=== PATIENT | female | born 2000 | race Caucasian/White ===

== ENCOUNTER 2019-05-24 05:29 | Emergency (ER) | payer OTHER, SELFPAY ==
[2019-05-24 05:31] VITALS: BP 155/78; PULSE 92; RESP 99; TEMP 37.3; BMI 21.7
--- NOTE | 2019-05-24 05:42 | ED.DCSUM_ITS ---
- ER Visit Summary Date of Service: 05/24/19 Chief Complaint: Abdominal pain History of Present Illness: The patient is a 18 F who presents with abdominal pain for 10 years. Patient states is been intermittent in nature and states that when she was a freshman in high school she took medication for it which helped. She has not taken anything since. She does not have a primary care physician. States she can find somebody to take her insurance. Typically worse at night worse with laying down. Is described as burning and epigastric rating up into her chest sometimes up into her throat. Physical Examination: Afebrile vital signs stable Gen: Well-nourished well-developed Head: Normocephalic atraumatic Eyes: Perrl EOMI ENT: TMs clear no rhinorrhea moist mucous membranes Neck: Supple no lymphadenopathy no JVD nontender CVS: Regular rate rhythm no murmurs normal S1-S2 Respiratory: No distress clear to auscultation bilaterally chest nontender Abdomen: Soft nontender nondistended normal bowel sounds no masses Back: Nontender Extremity: Nontender no edema Skin: Normal color no rash Neuro: alert orientated ?3 CN II-XII intact normal strength sensation Psych: Normal affect normal mood Emergency Department Course and Treatment: Given a GI cocktail and Pepcid. Actually the patient states that she is unable to take liquid medications. So we gave her Carafate. Is been ongoing issue for 10 years. She has a negative physical exam and normal vital signs. This is something that can certainly be worked up as an outpatient. I write her for daily Pepcid and Carafate and encouraged her to establish primary care Impression: 1. Gastritis This note was generated with datango dictation software. It may contain incorrect words, spelling, and punctuation that were not noted in review of the chart prior to signing ED Disposition - Plan for ED Patient: Disposition: Home or Assisted Living Instructions: GASTRITIS vs. ULCER Prescriptions: Sucralfate [Carafate] 1 gm PO 4X/DAY #56 tab Prescription Printed Famotidine [Pepcid] 20 mg PO BID #28 tab Prescription Printed
[2019-05-24] MEDS: Famotidine 20 MG Tablet PO (05:58)
[2019-05-24] MEDS: Sucralfate 1 GM Tablet PO (06:26)
[2019-05-24 06:31] VITALS: RESP 16
== END 2019-05-24 06:31 | disposition home or self-care (01) ==
PROVIDERS: Emergency Provider Emergency Medicine
DX: K29.70 Gastritis, unspecified, without bleeding (principal)
CPT/HCPCS: 99283

== ENCOUNTER 2019-07-31 20:09 | Emergency (ER) | payer OTHER, SELFPAY ==
[2019-07-31 20:10] VITALS: BP 137/69; PULSE 72; RESP 16; TEMP 37.1; O2SAT 100
[2019-07-31] MEDS: Acetaminophen 500 MG Tablet 1000 MG PO (21:02)
[2019-07-31] MEDS: Clindamycin HCl 150 MG Capsule 450 MG PO (21:02)
--- NOTE | 2019-07-31 21:12 | ED.VIS.GEN ---
History of Present Illness Chief Complaint: Dental Informant: Patient Onset: Month(s) - 1 Narrative: Left upper dental pain on and off for the past month. Cold sensitivities. Subjective fevers. Denies tobacco history. States having trouble getting a dentist due to insurance accepted in network. No trouble swallowing. Allergy amoxicillin causing dyspnea and rash Prior similar symptoms: Yes Past Medical History - Allergies and Home Meds Allergies/Adverse Reactions: Allergies amoxicillin Allergy (Verified 07/31/19 20:13) Rash diphenhydramine HCl [From Benadryl] Allergy (Verified 07/31/19 20:13) Rash Primary Care Physician: Abner Stone NP-C [Primary Care Provider] - Smoking Status: Never smoker Review of Systems General: Reports: Fever, Subjective. Denies: Chills, Sweats Eyes: Denies: Visual changes - bilaterally, Diplopia ENT: Denies: Rhinorrhea, Sore throat Cardiovascular: Denies: Chest pain, Palpitations Respiratory: Denies: Dyspnea, Cough, Dyspnea on exertion Gastrointestinal: Denies: Abdominal pain, Nausea, Vomiting, Diarrhea, Melena, Hematochezia Genitourinary: Denies: Dysuria, Hematuria, Frequency Musculoskeletal: Denies: Back pain, Extremity Pain Skin: Denies: Rash, Wounds Neurological: Denies: Headache, Weakness, Numbness Physical Exam Vital Signs/Narrative: Vital Signs Temp Pulse Resp BP Pulse Ox 07/31/19 20:10 98.8 F 72 16 137/69 H 100 Inital Vital Signs reviewed: Yes General: Well nourished, Well developed, No Acute Distress Head: Normocephalic, Atraumatic Eyes: Perrl, EOMI ENT: Moist mucous membranes, No rhinorrhea, - - Tender to palpation tooth #5 with dental decay, no fluctuance. Airway patent. No trismus. Neck: Supple, Nontender Cardiovascular: Regular rate, Regular rhythm, No murmurs Respiratory: No distress, CTA bilaterally, Chest nontender Abdomen: Soft, Nontender, Nondistended, Normal bowel sounds Back: Nontender, Normal Inspection Extremities: Nontender, No edema Skin: Normal color, No rash Neurological: Alert, Oriented x3, Cranial nerves II-XII grossly intact, Normal Strength, Normal Sensation Psychological: Normal affect, Normal Mood Diagnostic/Tx/Re-eval - Medical Decision Making Patient reports history of gastritis concerns for possible ulcer being worked up as an outpatient. Started on Tylenol, she states she was using Aleve which is did not upset her stomach. Started on clindamycin in the ED. Given a dental list also discussed calling her dental insurance for in network providers for definitive treatment. All questions were answered. ED Disposition - Plan for ED Patient: Disposition: Home or Assisted Living Diagnosis: Dental caries Instructions: Dental Cavity Prescriptions: Clindamycin [Cleocin] 450 mg PO TID #90 capsule Referrals: Abner Stone NP-C [Primary Care Provider] - Additional Instructions: call dentist for follow up for definitive treatment.
== END 2019-07-31 21:33 | disposition home or self-care (01) ==
PROVIDERS: Emergency Provider Emergency Medicine; Family Provider Nurse Practitioner Primary Care; PCP Nurse Practitioner Primary Care
DX: K02.9 Dental caries, unspecified (principal)
CPT/HCPCS: 99283

== ENCOUNTER 2021-03-01 01:16 | Emergency (ER) | payer OTHER, SELFPAY ==
[2021-03-01 01:18] VITALS: BP 138/75; PULSE 102; RESP 18; TEMP 36.8; O2SAT 100; BMI 21.7
[2021-03-01 01:31] VITALS: BP 129/81; PULSE 104; RESP 16; O2SAT 100
--- NOTE | 2021-03-01 01:56 | EX.ED.DYSGE1 ---
HPI History of Present Illness Chief Complaint: Abd Pain Informant: patient Onset/Context/Timing Onset: Hours Context: Gradual Onset Current Severity: Mild Maximum Severity: Moderate Narrative Narrative: Patient reports developing abdominal pain along with nausea and vomiting a few hours after eating dinner last evening. No fever or chills. Pain was rather diffuse in the abdomen but did seem to be slightly worse in the left lower quadrant and epigastrium. Patient denies any prior abdominal surgeries. [facility] Medical History Wheat allergy Home Medications montelukast 10 mg PO DAILY 07/31/19 [History Last Taken Unknown] omeprazole 40 mg PO DAILY 07/31/19 [History Last Taken Unknown] ondansetron 4 mg PO Q8H PRN #10 tab 03/01/21 [Rx Last Taken Unknown] Allergy/AdvReac Type Severity Reaction Status Date / Time amoxicillin Allergy Rash Verified 03/01/21 01:17 diphenhydramine HCl Allergy Rash Verified 03/01/21 01:17 [From Benadryl] Social History Smoking Status: Never smoker ROS ROS ED Constitutional Constitutional ED: Denies chills or fever(s) Eyes Eyes: Denies change in vision ENT ENT ED: Denies sore throat Cardiovascular Cardiovascular: Denies chest pain Respiratory/Chest Respiratory/Chest: Denies cough or dyspnea Gastrointestinal Gastrointestinal: Reports abdominal pain, nausea and vomiting; Denies diarrhea Genitourinary Genitourinary ED: Denies dysuria Musculoskeletal Musculoskeletal: Denies back pain Integumentary Denies rash Neurologic Neurologic: Denies headache(s) or weakness Psychiatric Psychiatric: Denies anxiety or depression Endocrine Endocrinology: Denies polydipsia or polyuria Allergic/Immunologic Allergic/Immunologic ED: Denies urticaria EXAM Physical Exam Const Vital Signs: 03/01/21 01:18 03/01/21 01:31 03/01/21 03:44 Temperature 98.2 F Temperature Source Oral Pulse Rate 102 H 104 H 93 Respiratory Rate 18 16 16 Blood Pressure 138/75 H 129/81 H 129/66 H Blood Pressure Mean 96 97 87 Pulse Ox 100 100 0 Oxygen Delivery Method Room Air Room Air Room Air Positive well nourished and well developed General Appearance ED: well developed HEENT Reports normocephalic and head/scalp atraumatic Eyes PERRL and EOMs intact bilaterally Neck supple Chest Wall inspection of chest normal and palpation of chest normal Resp normal respiratory effort and clear to auscultation bilaterally Cardio regular rate and regular rhythm GI non-tender Auscultation: hypoactive bowel sounds Palpation: soft Extremity normal to inspection Neuro oriented x3 and no sensory deficits noted Sensorium / Orientation: alert Motor Exam: strength 5/5 throughout Psych mental status grossly normal Skin no rashes or lesions noted MDM MDM MDM Narrative Medical decision making narrative: Patient was given IV fluids along with Zofran. Labs were obtained. Lab Data Attestation: I reviewed the patient's lab results. Labs: Laboratory Results - last 24 hr 03/01/21 03/01/21 03/01/21 01:30 01:30 02:06 WBC 21.3 H RBC 4.72 Hgb 13.4 Hct 40.7 MCV 86.2 MCH 28.4 MCHC 32.9 RDW Std Deviation 46.6 H RDW Coeff of Bethanie 14.6 Plt Count 303 MPV 11.0 Immature Gran % (Auto) 0.500 Neut % (Auto) 84.5 H Lymph % (Auto) 3.3 L Knott % (Auto) 10.4 H Eos % (Auto) 1.0 Baso % (Auto) 0.3 Absolute Neuts (auto) 18.0 H Absolute Lymphs (auto) 0.70 L Nucleated RBC % 0 Differential Comment SCANNED Diff Path Review May foll Platelet Estimate ADEQUATE Sodium 139 Potassium 4.1 Chloride 107 Carbon Dioxide 25.0 Anion Gap 7 BUN 12 Creatinine 0.80 Estim Creat Clear Calc 108.17 Est GFR (MDRD) Af Amer 117 Est GFR (MDRD) Non-Af 97 BUN/Creatinine Ratio 15.1 Glucose 101 Calcium 9.3 Total Bilirubin 0.50 Direct Bilirubin 0.16 AST 18 ALT 24 Alkaline Phosphatase 62 Total Protein 9.0 H Albumin 4.4 Globulin 4.6 H Lipase 63 L Serum , Qual NEGATIVE Radiography Diagnostic Testing: Radiology Impression Abdomen/Pelvis CT 03/01/21 03:30 IMPRESSION: Likely recently ruptured left ovarian follicle with trace pelvic free fluid. Otherwise, unremarkable exam. Normal appendix. Electronically Signed: Gabriel Oleary DO at 4:04 EDT Tel , Service support , Treatment and Re-Evaluation Comments:: Patient's white count is significantly elevated which may be a reaction from vomiting. On repeat abdominal examination she does have more tenderness in the left lower quadrant than elsewhere. In light of this with her leukocytosis a CT with IV contrast is obtained. There is evidence of a small left ovarian cyst with a recently ruptured ovarian follicle. This is likely the source of her tenderness. Patient did receive a dose of Reglan in addition to Zofran for nausea and does feel improved at this time. She will be discharged with a prescription for Zofran. Return instructions are provided. Discharge Plan Triage Chief Complaint: Abd Pain ED Provider: Lili Reyes Dx/Rx/DC Orders Clinical Impression: Vomiting, Ovarian cyst Instructions: ED Ovarian Cyst, ED Vomiting (Adult) Prescriptions: New ondansetron 4 mg tablet,disintegrating 4 mg PO Q8H PRN (Reason: nausea and vomiting) Qty: 10 RF: 0 No Action omeprazole 40 MG capsule,delayed release(DR/EC) 40 mg PO DAILY RF: 0 montelukast 10 MG tablet 10 mg PO DAILY RF: 0 Primary Care Provider: Care Physician,No Primary Referrals: Cesar Oneill MD [NON-STAFF] - As Needed Care Physician,No Primary [Primary Care Provider] - Disposition Disposition: Home, self care
[2021-03-01] MEDS: Ondansetron 4 MG/2 ML Vial IV (02:05)
[2021-03-01 02:14] LABS: Basophil# 0.07 X10^3/uL; Basophil% 0.3 % (0-1); Eosinophil# 0.21 X10^3/uL; Hematocrit 40.7 % (37-47); Hemoglobin 13.4 g/dL (12.0-15.0); Lymphocyte % 3.3 % (19-41); Mean Corp Hgb Conc 32.9 g/dL (32-36); Mean Corpuscular Hgb 28.4 pg (27.0-32.0); Mean Corpuscular Volume 86.2 fL (81-99); Monocyte# 2.22 X10^3/uL; Monocyte% 10.4 % (0-10); NRBC Flagged by Analyzer 0 % (0-5); Neutrophil # 18.04 X10^3/uL (2.7-7.7); Neutrophil % 84.5 % (47-70); POSITIVE DIFFERENTIAL YES; Platelet Count 303 K/mm3 (150-450); RBC Distribution Width CV 14.6 % (11.6-14.6); RBC Distribution Width SD 46.6 fl (35.1-43.9); Red Blood Count 4.72 M/mm3 (4.2-5.4); White Blood Count 21.3 K/mm3 (4.4-11.0)
[2021-03-01 02:25] LABS: Internal QC Validated? YES +Cl - CLEAR BKGD; Pregnancy, Serum, hCG Quali. NEGATIVE Negative
[2021-03-01 02:29] LABS: AST(SGOT) 18 U/L (15-37); Alanine Aminotransfer ALT/SGPT 24 U/L (13-56); Albumin, Serum 4.4 g/dL (3.2-5.0); Alkaline Phosphatase 62 U/L (45-117); Anion Gap 7 (5-15); BUN 12 mg/dL (7-18); BUN/Creat Ratio 15.1 RATIO (10-20); Bilirubin, Direct 0.16 mg/dL (0.00-0.30); Calcium,Total 9.3 mg/dL (8.5-10.1); Chloride 107 mmol/L (98-107); Differential Indicated SCAN CRITERIA MET; EST Glomerular Filtration Rate 97 mL/min (>60); Est Glom Filt Rate - Afr Amer 117 mL/min (>60); Estimated Creatinine Clearance 108.17 ml/min; Globulin 4.6 g/dL (2.2-4.2); Glucose 101 mg/dL (74-106); Lipase 63 U/L (73-393); Potassium 4.1 mmol/L (3.5-5.1); Sodium Level 139 mmol/L (136-145)
[2021-03-01 03:02] LABS: Differential Comment SCANNED; Platelet Estimate ADEQUATE (ADEQ)
--- NOTE | 2021-03-01 03:30 | CT_ITS ---
STUDY: CT ABDOMEN AND PELVIS WITH CONTRAST REASON FOR EXAM: Female, 20 years old. abd pain, leukocytosis RADIATION DOSAGE (If Supplied By Facility): CTDIvol = ( 8.04 ) mGy, DLP = ( 324.95 ) mGycm TECHNIQUE: Transaxial images were obtained from the dome of the diaphragm to the symphysis pubis without oral contrast. IV 100mL Isovue-370 was administered. Sagittal and coronal images were reconstructed. Individualized dose optimization techniques were used for this CT. COMPARISON: None. FINDINGS: The visualized lung bases are unremarkable. The visualized portions of the heart are within normal limits. Normal liver. Normal gallbladder and extrahepatic biliary system. Normal spleen. Normal pancreas. Normal bilateral adrenal glands. Normal right kidney. Normal left kidney. Normal visualized stomach. Normal small intestine. Normal colon. The appendix is visualized and appears normal. Normal abdominal aorta. Normal inferior vena cava. Normal retroperitoneum. Normal urinary bladder. Unremarkable uterus. Left ovarian cyst with likely recently ruptured small follicle measuring 1.6 x 1.6 cm. Trace pelvic free fluid. Normal abdominal wall. Normal osseous structures. CT/Abdomen/Pelvis W IV Cont ONLY IMPRESSION: Likely recently ruptured left ovarian follicle with trace pelvic free fluid. Otherwise, unremarkable exam. Normal appendix. Electronically Signed: Gabriel Oleary DO at 4:04 EDT Tel , Service support ,
[2021-03-01] MEDS: Metoclopramide 10 MG/2 ML Vial 5 MG IV (03:42)
[2021-03-01 03:44] VITALS: BP 129/66; PULSE 93; RESP 16; O2SAT 0
[2021-03-01 04:39] VITALS: BP 116/80; PULSE 90; RESP 16; O2SAT 98
[2021-03-04 12:10] LABS: Pathologist Review Reviewed
== END 2021-03-01 04:45 | disposition home or self-care (01) ==
PROVIDERS: Emergency Provider Emergency Medicine
DX: N83.202 Unspecified ovarian cyst, left side (principal); R11.2 Nausea with vomiting, unspecified
CPT/HCPCS: 74177; 80048; 80076; 83690; 84703; 85025; 96361; 96374; 96375; 99283; J7030; Q9967; A4216; J2405

== ENCOUNTER 2021-03-25 19:13 | Emergency (ER) | payer OTHER, SELFPAY ==
[2021-03-25 19:13] VITALS: BP 128/72; PULSE 94; RESP 16; TEMP 36.8; O2SAT 99; BMI 20.8
[2021-03-25 19:50] VITALS: BP 128/72; PULSE 94; RESP 16; TEMP 36.8; O2SAT 99
--- NOTE | 2021-03-25 19:51 | CT_ITS ---
HISTORY: Pain EXAMINATION: CT Abdomen And Pelvis W/O Contrast Injection TECHNIQUE: Multiple axial images were obtained of the abdomen and pelvis without oral or IV contrast. A radiation dose optimization technique was used for this scan. IV Contrast dosage and agent: None. Oral contrast: None. COMPARISON: None FINDINGS: LOWER CHEST: Lung bases are clear. No cardiomegaly or pericardial effusion. LIVER: Homogeneous. No focal mass. GALLBLADDER AND BILIARY TREE: No calcified gallstones. No gallbladder distension or wall edema. No intra- or extrahepatic biliary ductal dilation. PANCREAS: No focal cystic or solid mass. SPLEEN: Normal size without focal cystic or solid mass. ADRENAL GLANDS: No nodules. KIDNEYS AND URETERS: Normal renal size and position. No hydronephrosis or nephrolithiasis. PERITONEUM: No ascites or free air. BOWEL: Normal appendix. No stomach or bowel distension. Diffusely increased colonic fecal burden. No focal inflammatory bowel wall changes. LYMPH NODES: No enlarged mesenteric or retroperitoneal lymph nodes. VESSELS: Aorta is non-dilated. URINARY BLADDER: Unremarkable. REPRODUCTIVE ORGANS: No pelvic masses. ABDOMINAL WALL: No discrete abdominal or pelvic wall hernia. BONES: Unremarkable. CT/Abdomen/Pelvis without Cont IMPRESSION: No acute findings in the abdomen or pelvis. Colonic fecal burden consistent with clinical constipation. Individualized dose optimization techniques were used for this CT. at 2115 Reported and signed by: Riccardo Ley MD Electronically Signed: Riccardo Ley MD at 21:14 EDT Tel , Service support ,
--- NOTE | 2021-03-25 19:52 | EX.ED.DYSGE1 ---
HPI History of Present Illness Chief Complaint: Flank Pain Narrative Narrative: 20-year-old female presents with left flank pain. Worsening over the past 2 weeks. Increased urinary frequency. Went to urgent care where they stated she had blood in her urine and needs to have a kidney stone ruled out. States that she had nausea without vomiting. Denies any fever or chills. No concern for . PFSH PFS Medical History Wheat allergy Home Medications montelukast 10 mg PO DAILY 07/31/19 [History Last Taken Unknown] omeprazole 40 mg PO DAILY 07/31/19 [History Last Taken Unknown] ondansetron 4 mg PO Q8H PRN #10 tab 03/01/21 [Rx Last Taken Unknown] polyethylene glycol 3350 [Miralax] 17 g PO DAILY #119 g 03/25/21 [Rx Last Taken Unknown] Allergy/AdvReac Type Severity Reaction Status Date / Time amoxicillin Allergy Rash Verified 03/25/21 19:16 diphenhydramine HCl Allergy Rash Verified 03/01/21 01:17 [From Benadryl] Social History Smoking Status: Never smoker ROS ROS ED Constitutional Constitutional ED: Denies chills, fever(s) or sweats Eyes Eyes: Denies blurry vision, change in vision or diplopia ENT ENT ED: Denies rhinorrhea or sore throat Cardiovascular Cardiovascular: Denies chest pain, orthopnea, palpitations or racing heartbeat Respiratory/Chest Respiratory/Chest: Denies cough, dyspnea, dyspnea on exertion, orthopnea or sputum Gastrointestinal Gastrointestinal: Reports abdominal pain and nausea; Denies constipation, diarrhea, melena or vomiting Genitourinary Genitourinary ED: Denies dysuria, hematuria or urinary frequency Musculoskeletal Musculoskeletal: Denies arthralgias, myalgias or neck pain Integumentary Denies rash Neurologic Neurologic: Denies headache(s), paresthesias or weakness Psychiatric Psychiatric: Denies anxiety or depression Hematologic/Lymphatic Hematologic/Lymphatic: Denies easy bleeding or easy bruising Allergic/Immunologic Allergic/Immunologic ED: Denies mouth swelling or tongue swelling EXAM Physical Exam Const Vital Signs: 03/25/21 19:13 03/25/21 19:50 Temperature 98.3 F 98.3 F Temperature Source Temporal Temporal Pulse Rate 94 94 Respiratory Rate 16 16 Blood Pressure 128/72 H 128/72 H Blood Pressure Mean 90 90 Pulse Ox 99 99 Oxygen Delivery Method Room Air Room Air Positive well nourished and well developed General Appearance ED: well developed HEENT Reports TM's clear and moist mucous membranes normocephalic and atraumatic Tympanic Membrane ED: Yes TM's clear Eyes PERRL and EOMs intact bilaterally Neck no lymphadenopathy, supple and no JVD Chest Wall inspection of chest normal Resp normal respiratory effort and clear to auscultation bilaterally Cardio regular rate, S1 normal heart sound, S2 normal heart sound and no murmurs Peripheral Pulses: pulses 2+ throughout GI soft to palpation, non-tender and non-distended Back/Spine no CVA tenderness and no thoracic nor lumbar tenderness Extremity normal to inspection General Extremety ED: Negative for edema or tenderness General Extremity: Negative for edema Neuro oriented x3, CN's II-XII intact bilaterally and no sensory deficits noted Sensorium / Orientation: alert Motor Exam: strength 5/5 throughout Psych mental status grossly normal Skin no rashes or lesions noted MDM MDM MDM Narrative Medical decision making narrative: Patient appears well and nontoxic. Microscopic hematuria without infection. CT negative but does show significant constipation. Lab work within normal limits. Patient be given 5 days of MiraLAX. Advised on continued p.o. hydration. Patient agreeable and discharged home in stable condition. Lab Data Attestation: I reviewed the patient's lab results. Labs: Laboratory Results - last 24 hr 03/25/21 03/25/21 03/25/21 19:56 20:35 20:35 WBC 5.8 RBC 4.36 Hgb 12.3 Hct 37.5 MCV 86.0 MCH 28.2 MCHC 32.8 RDW Std Deviation 45.9 H RDW Coeff of Bethanie 14.5 Plt Count 284 MPV 10.4 Immature Gran % (Auto) 0.300 Neut % (Auto) 53.1 Lymph % (Auto) 31.2 Hopkins % (Auto) 12.8 H Eos % (Auto) 1.9 Baso % (Auto) 0.7 Absolute Neuts (auto) 3.1 Absolute Lymphs (auto) 1.81 Nucleated RBC % 0 Sodium 140 Potassium 3.6 Chloride 107 Carbon Dioxide 26.0 Anion Gap 7 BUN 6 L Creatinine 0.80 Estim Creat Clear Calc 109.13 Est GFR (MDRD) Af Amer 115 Est GFR (MDRD) Non-Af 95 BUN/Creatinine Ratio 7.5 L Glucose 89 Calcium 9.5 Urine Color Yellow Urine Clarity Clear Urine pH 7.0 Ur Specific [place] 1.010 Urine Protein Negative Urine Glucose (UA) Normal Urine Ketones Negative Urine Occult Blood 25 H Urine Nitrite Negative Urine Bilirubin Negative Urine Urobilinogen Normal Ur Leukocyte Esterase Negative Urine RBC 0 SEEN Urine WBC 0 SEEN Ur Squamous Epith Cells 0-5 SEEN Urine Bacteria RARE Urine Mucus 0 SEEN Urine Test Negative Radiography Diagnostic Testing: Radiology Impression Abdomen/Pelvis CT 03/25/21 19:51 IMPRESSION: No acute findings in the abdomen or pelvis. Colonic fecal burden consistent with clinical constipation. Individualized dose optimization techniques were used for this CT. at 2115 Reported and signed by: Riccardo Ley MD Electronically Signed: Riccardo Ley MD at 21:14 EDT Tel , Service support , Discharge Plan Triage Chief Complaint: Flank Pain Other Complaint: Complaint ED Provider: Ben Cifuentes Dx/Rx/DC Orders Clinical Impression: Acute flank pain, Constipation Instructions: Abdominal Pain Prescriptions: New polyethylene glycol 3350 [Miralax] 17 gram/dose powder 17 g PO DAILY Qty: 119 RF: 0 No Action omeprazole 40 MG capsule,delayed release(DR/EC) 40 mg PO DAILY RF: 0 montelukast 10 MG tablet 10 mg PO DAILY RF: 0 ondansetron 4 mg tablet,disintegrating 4 mg PO Q8H PRN (Reason: nausea and vomiting) Qty: 10 RF: 0 Primary Care Provider: Care Physician,No Primary Referrals: Nena Lopez MD [STAFF PHYSICIAN] - 2 Days Care Physician,No Primary [Primary Care Provider] - Disposition Disposition: Home, Self Care
[2021-03-25 20:06] LABS: Mucous, Urine 0 SEEN /hpf (<or=2+); Red Blood Cells-Urine 0 SEEN /hpf (0-5); White Blood Cells 0 SEEN /hpf (0-5)
[2021-03-25 20:11] LABS: Color, Urine Yellow (Yellow); Glucose, Dipstick Normal (Normal); Ketone-Dipstick Negative (Negative); Leukocyte Esterase-Dipstick Negative /ul (Negative); Nitrite-Dipstick Negative (Negative); Occult Blood-Urine 25 /ul (Negative); Protein-Dipstick Negative (Negative); Urine Bilirubin Dipstick Negative (Negative); Urine Clarity Clear (Clear); Urine Urobilinogen Normal (Normal)
[2021-03-25 20:28] LABS: Bacteria RARE /hpf (None Seen); Squamous Epithelial Cells - UA 0-5 SEEN /hpf (5-10)
[2021-03-25 20:29] LABS: Internal QC Validated? YES +Cl - CLEAR BKGD; Pregnancy, Urine Negative Negative
[2021-03-25] MEDS: 0.9% Normal Saline 1,000 ML 1000 ML IV (20:30)
[2021-03-25] MEDS: Ondansetron 4 MG/2 ML Vial IV (20:33)
[2021-03-25] MEDS: Ketorolac 15 MG/ML Vial IV (20:33)
[2021-03-25 20:46] LABS: Absolute Lymphocyte Count 1.81 X10^3/uL (0.83-4.51); Absolute Neutrophil Count 3.1 X10^3/uL (2.0-7.7); Basophil# 0.04 X10^3/uL; Basophil% 0.7 % (0-1); Eosinophil# 0.11 X10^3/uL; Eosinophils% 1.9 % (0-5); Hematocrit 37.5 % (37-47); Hemoglobin 12.3 g/dL (12.0-15.0); Lymphocyte # 1.81 X10^3/ul (0.83-4.51); Lymphocyte % 31.2 % (19-41); Mean Corp Hgb Conc 32.8 g/dL (32-36); Mean Corpuscular Hgb 28.2 pg (27.0-32.0); Mean Platelet Vol. 10.4 fl (6.2-12.0); Monocyte# 0.74 X10^3/uL; Monocyte% 12.8 % (0-10); NRBC Flagged by Analyzer 0 % (0-5); Neutrophil # 3.08 X10^3/uL (2.7-7.7); Neutrophil % 53.1 % (47-70); Platelet Count 284 K/mm3 (150-450); RBC Distribution Width CV 14.5 % (11.6-14.6); RBC Distribution Width SD 45.9 fl (35.1-43.9); Red Blood Count 4.36 M/mm3 (4.2-5.4); White Blood Count 5.8 K/mm3 (4.4-11.0)
[2021-03-25 20:59] LABS: Anion Gap 7 (5-15); BUN 6 mg/dL (7-18); BUN/Creat Ratio 7.5 RATIO (10-20); Calcium,Total 9.5 mg/dL (8.5-10.1); Chloride 107 mmol/L (98-107); EST Glomerular Filtration Rate 95 mL/min (>60); Est Glom Filt Rate - Afr Amer 115 mL/min (>60); Estimated Creatinine Clearance 109.13 ml/min; Glucose 89 mg/dL (74-106); Potassium 3.6 mmol/L (3.5-5.1); Sodium Level 140 mmol/L (136-145)
[2021-03-25 22:07] VITALS: RESP 16
== END 2021-03-25 22:07 | disposition home or self-care (01) ==
PROVIDERS: Emergency Provider Emergency Medicine
DX: R10.9 Unspecified abdominal pain (principal); K59.00 Constipation, unspecified; R11.0 Nausea
CPT/HCPCS: 74176; 80048; 81001; 81025; 85025; 96374; 96375; 99283; J7030; J2405

== ENCOUNTER 2022-02-19 20:16 | Emergency (ER) | payer OTHER, SELFPAY ==
[2022-02-19 20:17] VITALS: BP 142/73; PULSE 100; RESP 16; TEMP 37.2; O2SAT 99; BMI 17.7
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
== END 2022-02-19 20:42 | disposition home or self-care (01) ==
PROVIDERS: Emergency Provider Emergency Medicine; Visit Provider Emergency Medicine
DX: S16.1XXA Strain of muscle, fascia and tendon at neck level, initial encounter (principal); M54.6 Pain in thoracic spine; F17.290 Nicotine dependence, other tobacco product, uncomplicated; M62.838 Other muscle spasm; M25.519 Pain in unspecified shoulder; V53.5XXA Driver of pick-up truck or van injured in collision with car, pick-up truck or van in traffic accident, initial encounter; Y93.89 Activity, other specified; Y99.9 Unspecified external cause status; Y92.9 Unspecified place or not applicable
CPT/HCPCS: 99282

== ENCOUNTER 2022-08-05 20:05 | Emergency (ER) | payer OTHER, SELFPAY ==
[2022-08-05 20:06] VITALS: BP 135/72; PULSE 89; RESP 15; TEMP 36.9; O2SAT 99; BMI 22.6
[2022-08-05 20:37] LABS: Mucous, Urine 0 SEEN /hpf (<or=2+); Red Blood Cells-Urine 0 SEEN /hpf (0-5)
[2022-08-05 20:40] LABS: Color, Urine Yellow (Yellow); Glucose, Dipstick Normal (Normal); Ketone-Dipstick 50 mg/dl (Negative); Leukocyte Esterase-Dipstick Negative /ul (Negative); Nitrite-Dipstick Negative (Negative); Occult Blood-Urine 10 /ul (Negative); Protein-Dipstick Negative (Negative); Urine Bilirubin Dipstick Negative (Negative); Urine Clarity Sl. Cloudy (Clear); Urine Urobilinogen Normal (Normal); Urine pH 6.5 (5.0 - 8.0)
[2022-08-05 20:42] LABS: Absolute Lymphocyte Count 2.09 X10^3/uL (0.83-4.51); Absolute Neutrophil Count 6.7 X10^3/uL (2.0-7.7); Basophil# 0.06 X10^3/uL; Basophil% 0.6 % (0-1); Eosinophil# 0.03 X10^3/uL; Eosinophils% 0.3 % (0-5); Hematocrit 39.7 % (37-47); Hemoglobin 13.2 g/dL (12.0-15.0); Lymphocyte # 2.09 X10^3/ul (0.83-4.51); Lymphocyte % 21.1 % (19-41); Mean Corp Hgb Conc 33.2 g/dL (32-36); Mean Corpuscular Hgb 29.1 pg (27.0-32.0); Mean Corpuscular Volume 87.4 fL (81-99); Monocyte# 0.99 X10^3/uL; NRBC Flagged by Analyzer 0 % (0-5); Neutrophil # 6.71 X10^3/uL (2.7-7.7); Neutrophil % 67.7 % (47-70); Platelet Count 341 K/mm3 (150-450); RBC Distribution Width CV 14.3 % (11.6-14.6); RBC Distribution Width SD 46.1 fl (35.1-43.9); Red Blood Count 4.54 M/mm3 (4.2-5.4); White Blood Count 9.9 K/mm3 (4.4-11.0)
[2022-08-05 20:53] LABS: Bacteria RARE /hpf (None Seen); Squamous Epithelial Cells - UA 0-5 SEEN /hpf (5-10); White Blood Cells 0-5 SEEN /hpf (0-5)
[2022-08-05 21:09] LABS: Anion Gap 6 (5-15); BUN 9 mg/dL (7-18); BUN/Creat Ratio 11.6 RATIO (10-20); Calcium,Total 9.6 mg/dL (8.5-10.1); Chloride 107 mmol/L (98-107); Creatinine, Serum 0.77 mg/dL (0.55-1.02); EST Glomerular Filtration Rate 98 mL/min (>60); Est Glom Filt Rate - Afr Amer 119 mL/min (>60); Estimated Creatinine Clearance 107.28 ml/min; Glucose 93 mg/dL (74-106); Potassium 3.6 mmol/L (3.5-5.1); Sodium Level 140 mmol/L (136-145)
--- NOTE | 2022-08-05 21:22 | EDS_ITS ---
HPI History of Present Illness Chief Complaint: Abd Pain Narrative Narrative: 21-year-old female presenting initially with a chief complaint of itchy nose and sneezing. She was concerned she might have something of a sinus infection. She does not have any purulent drainage. She states he is tried Sudafed at home without relief. She took ibuprofen at about 330 and this did not help significantly. Denies fever, chills, body aches. She states she is not nauseous or vomiting. She denies diarrhea or constipation. She does state that she has some upper abdominal pain which she wanted to get checked out while she was here for this note sneezing. This has been something ongoing. She denies any new symptoms. [facility] Medical History Wheat allergy Home Medications montelukast 10 mg tablet 10 mg PO DAILY 07/31/19 [History Last Taken Unknown] omeprazole 40 mg capsule,delayed release 40 mg PO DAILY 07/31/19 [History Last Taken Unknown] polyethylene glycol 3350 17 gram/dose oral powder (Miralax) 17 g PO DAILY #119 grams 03/25/21 [Rx Last Taken Unknown] metaxalone 800 mg tablet (Skelaxin) 800 mg PO TID PRN muscle pain 7 days #21 tabs 02/19/22 [Rx Last Taken Unknown] testosterone cypionate 200 mg/mL intramuscular oil mg 08/05/22 [History Last Taken Unknown] Allergy/AdvReac Type Severity Reaction Status Date / Time amoxicillin Allergy Rash Verified 08/05/22 20:09 diphenhydramine HCl Allergy Rash Verified 08/05/22 20:09 [From Benadryl] Social History Smoking Status: Current every day smoker tobacco type: e-cigarettes ROS ROS ED Constitutional Constitutional ED: Denies chills or fever(s) Eyes Eyes: Denies change in vision or diplopia ENT ENT ED: Reports rhinorrhea; Denies sore throat Cardiovascular Cardiovascular: Denies chest pain or palpitations Respiratory/Chest Respiratory/Chest: Denies cough or dyspnea Gastrointestinal Gastrointestinal: Denies abdominal pain or constipation Genitourinary Genitourinary ED: Denies dysuria or hematuria Musculoskeletal Musculoskeletal: Denies arthralgias or back pain Integumentary Denies abscess or Abrasions Neurologic Neurologic: Denies headache(s) or paresthesias Psychiatric Psychiatric: Denies anxiety or depression EXAM Physical Exam Const Vital Signs: 08/05/22 20:06 Temperature 98.5 F Temperature Source Temporal Pulse Rate 89 Respiratory Rate 15 Blood Pressure 135/72 H Blood Pressure Mean 93 Pulse Ox 99 Oxygen Delivery Method Room Air Positive well nourished General Appearance ED: NAD; Negative for pallor HEENT Reports moist mucous membranes Negative for trauma Eyes PERRL and EOMs intact bilaterally General Eye ED: Negative for pale conjunctiva or scleral icterus Neck no lymphadenopathy Chest Wall inspection of chest normal Resp normal respiratory effort Cardio regular rate and regular rhythm GI normal to inspection, nondistended, normoactive bowel sounds Neuro oriented x3 Sensorium / Orientation: alert Motor Exam: strength 5/5 throughout Psych mental status grossly normal Skin General Skin Exam: Negative for jaundice or pallor MDM MDM MDM Narrative Medical decision making narrative: Patient medicated with Tylenol. Her HEENT exam is unremarkable. Vital signs are within normal limits. CBC and BMP were obtained and these were both normal. Her abdominal exam is benign. Urinalysis negative for infection. I offered to test the patient for COVID due to the congestion and she states I do not think it is COVID. She does not want to be tested. Given this I recommend she alternate Tylenol and ibuprofen at home. She is to follow-up with her primary care provider to ensure resolution. She is discharged home in stable condition. Impression: 1. Abdominal pain 2. Nasal congestion Lab Data Labs: Laboratory Results - last 24 hr 08/05/22 08/05/22 08/05/22 20:25 20:25 20:25 WBC 9.9 RBC 4.54 Hgb 13.2 Hct 39.7 MCV 87.4 MCH 29.1 MCHC 33.2 RDW Std Deviation 46.1 H RDW Coeff of Bethanie 14.3 Plt Count 341 MPV 10.0 Immature Gran % (Auto) 0.300 Neut % (Auto) 67.7 Lymph % (Auto) 21.1 [place] % (Auto) 10.0 Eos % (Auto) 0.3 Baso % (Auto) 0.6 Absolute Neuts (auto) 6.7 Absolute Lymphs (auto) 2.09 Nucleated RBC % 0 Sodium 140 Potassium 3.6 Chloride 107 Carbon Dioxide 27.0 Anion Gap 6 BUN 9 Creatinine 0.77 Estim Creat Clear Calc 107.28 Est GFR (MDRD) Af Amer 119 Est GFR (MDRD) Non-Af 98 BUN/Creatinine Ratio 11.6 Glucose 93 Calcium 9.6 Urine Color Yellow Urine Clarity Sl. Cloudy Urine pH 6.5 Ur Specific [place] 1.020 Urine Protein Negative Urine Glucose (UA) Normal Urine Ketones 50 H Urine Occult Blood 10 H Urine Nitrite Negative Urine Bilirubin Negative Urine Urobilinogen Normal Ur Leukocyte Esterase Negative Urine RBC 0 SEEN Urine WBC 0-5 SEEN Ur Squamous Epith Cells 0-5 SEEN Urine Bacteria RARE Urine Mucus 0 SEEN Discharge Plan Triage Chief Complaint: Abd Pain ED Provider: Cricket Mccoy Dx/Rx/DC Orders Prescriptions: No Action omeprazole 40 MG capsule,delayed release(DR/EC) 40 mg PO DAILY montelukast 10 MG tablet 10 mg PO DAILY polyethylene glycol 3350 [Miralax] 17 gram/dose powder 17 g PO DAILY Qty: 119 0RF metaxalone [Skelaxin] 800 mg tablet 800 mg PO TID PRN (Reason: muscle pain) 7 Days Qty: 21 0RF testosterone cypionate 200 mg/mL oil Label Comments: Inject 0.13 mLs into the muscle once a week for 90 days.
[2022-08-05] MEDS: Acetaminophen 500 MG Tablet 1000 MG PO (21:31)
[2022-08-05 21:32] VITALS: RESP 17
== END 2022-08-05 21:49 | disposition home or self-care (01) ==
PROVIDERS: Emergency Provider Student in an Organized Health Care Education/Training Program; Visit Provider Student in an Organized Health Care Education/Training Program
DX: R10.9 Unspecified abdominal pain (principal); F17.290 Nicotine dependence, other tobacco product, uncomplicated; R09.81 Nasal congestion
CPT/HCPCS: 80048; 81001; 85025; 99284; A4216

== ENCOUNTER 2022-09-21 08:45 | Emergency (ER) | payer OTHER, SELFPAY ==
[2022-09-21 08:46] VITALS: BP 144/78; PULSE 74; RESP 6; TEMP 36.4; O2SAT 100; BMI 23.8
--- NOTE | 2022-09-21 09:15 | EX.ED.DYSGE1 ---
HPI History of Present Illness Chief Complaint: Cold Sx Informant: patient Onset/Context/Timing Onset: Days Context: Gradual Onset Timing: Intermittent Current Severity: Mild Maximum Severity: Mild Narrative Narrative: 21-year-old female noticed in past medical history of asthma. No major surgeries. Patient states she has had URI symptoms and is complaining of the room spinning. No headache. No falls or trauma. No vomiting or diarrhea. No fever. No headache. Some mild sinus pressure. No sinus drainage. Prior similar symptoms: Yes Recent Illness/Hospitalization: No PFSH PFSH Medical History Wheat allergy Home Medications montelukast 10 mg tablet 10 mg PO DAILY 07/31/19 [History Last Taken Unknown] omeprazole 40 mg capsule,delayed release 40 mg PO DAILY 07/31/19 [History Last Taken Unknown] polyethylene glycol 3350 17 gram/dose oral powder (Miralax) 17 g PO DAILY #119 grams 03/25/21 [Rx Last Taken Unknown] metaxalone 800 mg tablet (Skelaxin) 800 mg PO TID PRN muscle pain 7 days #21 tabs 02/19/22 [Rx Last Taken Unknown] testosterone cypionate 200 mg/mL intramuscular oil mg 08/05/22 [History Last Taken Unknown] Allergy/AdvReac Type Severity Reaction Status Date / Time amoxicillin Allergy Rash Verified 09/21/22 08:48 diphenhydramine HCl Allergy Rash Verified 09/21/22 08:48 [From Benadryl] Social History Smoking Status: Current every day smoker tobacco type: e-cigarettes ROS ROS ED ROS Narrative Mild sore throat. Sinus pressure. Review of Systems ROS Unobtainable: Denies due to encephalopathy Constitutional Constitutional ED: Denies chills or fever(s) Eyes Eyes: Denies blurry vision ENT ENT ED: Reports sore throat; Denies ear pain or rhinorrhea Cardiovascular Cardiovascular: Denies chest pain Respiratory/Chest Respiratory/Chest: Denies cough or dyspnea Gastrointestinal Gastrointestinal: Denies abdominal pain Genitourinary Genitourinary ED: Denies dysuria or hematuria Musculoskeletal Musculoskeletal: Denies arthralgias Integumentary Denies abscess Neurologic Neurologic: Denies headache(s) Psychiatric Psychiatric: Denies anxiety Endocrine Endocrinology: Denies cold intolerance Hematologic/Lymphatic Hematologic/Lymphatic: Reports none Allergic/Immunologic Allergic/Immunologic ED: Denies mouth swelling or tongue swelling EXAM Physical Exam Narrative Exam Narrative: 19-year-old female no acute distress. Vital signs stable afebrile. Pulse ox under percent on room air no hypoxia. H EENT exam normal. Posterior pharynx normal. TMs normal. No significant sinus tenderness or sinus drainage. Neck nontender. No lymphadenopathy. No meningismus. Lungs clear to auscultation bilaterally. Heart regular rhythm rate about 70 no murmur. Abdomen soft nontender. Moving all 4 extremities. 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 Normal dorsi plantar flexion. Sits up and ambulates any difficulty. Neurologic exam awake and alert. No focal motor or sensory deficits. No facial droop. Normal speech. Movement of the head from left to right sitting the patient up her dizziness gets worse. Consistent with vertigo. However she has no nystagmus. Const Vital Signs: 09/21/22 08:46 09/21/22 09:43 09/21/22 10:23 Temperature 97.6 F L Temperature Source Temporal Pulse Rate 74 Pulse Rate [Lying] 63 Pulse Rate [Sitting (for 1 minute prior to obtaining)] 71 Pulse Rate [Standing (for 1 minute prior to obtaining)] 76 Respiratory Rate 6 L Respiratory Effort Normal Non-Labored Respiratory Depth Normal Respiratory Pattern Normal Blood Pressure 144/78 H Blood Pressure [Lying] 134/73 H Blood Pressure [Sitting (for 1 minute prior to obtaining)] 128/72 H Blood Pressure [Standing (for 1 minute prior to obtaining)] 140/77 H Blood Pressure Mean 100 Blood Pressure Mean [Lying] 93 Blood Pressure Mean [Sitting (for 1 minute prior to obtaining)] 90 Blood Pressure Mean [Standing (for 1 minute prior to obtaining)] 98 Pulse Ox 100 Oxygen Delivery Method Room Air Room Air Positive well nourished and well developed; Negative for obese, cachectic, contractures or unkempt General Appearance ED: well developed and NAD; Negative for unkempt, cachectic, contractures, cyanotic, diaphoretic or pallor Nutritional Appearance: Negative for cachectic or obese HEENT Reports moist mucous membranes; Denies dry mucous membranes Negative for trauma or tenderness Mouth ED: No dry mucous membranes Mouth: No dry mucous membranes Eyes PERRL and EOMs intact bilaterally General Eye ED: Negative for pale conjunctiva, scleral icterus or other Neck no lymphadenopathy, supple and no JVD General: Negative for tenderness Lymph Lymphatic: Negative for other Chest Wall inspection of chest normal and palpation of chest normal Chest: Negative for other Resp normal respiratory effort and clear to auscultation bilaterally Effort and Inspection: Negative for retractions Auscultation: Negative for rales, rhonchi or wheezes Cardio regular rate, regular rhythm, S1 normal heart sound, S2 normal heart sound and no murmurs Palpation: Negative for palpable S3 Rate: Negative for bradycardia Rhythm: Negative for abnormal rhythm GI normal to inspection, nondistended, normoactive bowel sounds, non-tender, non-distended and no masses Inspection: Negative for abdominal distention Auscultation: normoactive bowel sounds Palpation: soft; Negative for tender or guarding Back/Spine no CVA tenderness General Back: Negative for CVA tenderness Cervical Spine: Negative for cervical spine tenderness Thoracic Spine / Upper Back: Negative for thoracic spinal tenderness or paraspinal muscle tenderness Lumbar Spine / Lower Back: Negative for lumbar spinal tenderness Extremity normal to inspection General Extremety ED: Negative for edema or tenderness General Extremity: Negative for edema Neuro oriented x3, CN's II-XII intact bilaterally and no sensory deficits noted Sensorium / Orientation: alert; Negative for orientation impaired Motor Exam: strength 5/5 throughout Psych mental status grossly normal Appearance: Negative for unkempt Attitude: No agitated Mood & Affect: Negative for depressed, anxious or tearful Skin no rashes or lesions noted, no wounds and skin turgor normal General Skin Exam: Negative for elasticity normal, jaundice or pallor Lesions: No lesion noted Rashes: No rashes noted Trauma: Negative for abrasion Wounds: Negative for wounds noted MDM MDM MDM Narrative Medical decision making narrative: Patient most likely a viral syndrome also has some vertigo symptoms. Exam otherwise benign. Ambulates without difficulty. NIH score is 0. Orthostatic vital signs to be obtained. She be given Antivert. Patient exam patient doing well at 11 AM. Orthostatic vital signs were negative. Exam is unchanged. Neurologic exam remains normal. Clinically this patient has a viral syndrome. That was causing her dizziness. There is no signs of any cerumen impaction. Exam is benign. Neurologic exam is normal. She ambulates without any difficulty. The Antivert really made no difference. She will be discharged to home. Off work today. Fluids and rest. Follow-up with your primary care provider if not improving. Discharge Plan Triage Chief Complaint: Cold Sx ED Provider: Barrie Brothers Dx/Rx/DC Orders Clinical Impression: Viral syndrome Instructions: ED Viral Syndrome (Adult) Prescriptions: No Action omeprazole 40 MG capsule,delayed release(DR/EC) 40 mg PO DAILY montelukast 10 MG tablet 10 mg PO DAILY polyethylene glycol 3350 [Miralax] 17 gram/dose powder 17 g PO DAILY Qty: 119 0RF metaxalone [Skelaxin] 800 mg tablet 800 mg PO TID PRN (Reason: muscle pain) 7 Days Qty: 21 0RF testosterone cypionate 200 mg/mL oil Label Comments: Inject 0.13 mLs into the muscle once a week for 90 days. Primary Care Provider: CHRISTIAN BRIDGES Referrals: Liz Bridges [Student Nurse] - 3-5 Days if not improving Activity Restrictions/Additional Instructions: Plenty of fluids and rest. Motrin and Tylenol as needed. Follow-up with your primary care provider if not improving. Off work today. Disposition Disposition: Home, Self Care
[2022-09-21] MEDS: Meclizine HCl 25 MG Tablet PO (09:27)
[2022-09-21 09:43] VITALS: BP 128/72; BP 134/73; BP 140/77; PULSE 63; PULSE 71; PULSE 76
[2022-09-21 10:23] VITALS: O2SAT 95
[2022-09-21 11:08] VITALS: O2SAT 95
[2022-09-21 11:12] VITALS: O2SAT 95
== END 2022-09-21 11:13 | disposition home or self-care (01) ==
PROVIDERS: Emergency Provider Emergency Medicine; Visit Provider Emergency Medicine
DX: B34.9 Viral infection, unspecified (principal); R42 Dizziness and giddiness; F17.290 Nicotine dependence, other tobacco product, uncomplicated; J45.909 Unspecified asthma, uncomplicated
CPT/HCPCS: 99283

== ENCOUNTER → 2023-05-06 | Outpatient (CLI) | payer OTHER, SELFPAY ==
[2023-05-06 17:14] LABS: Hematocrit 39.1 % (37-47); Hemoglobin 12.9 g/dL (12.0-15.0); Mean Corpuscular Hgb 28.2 pg (27.0-32.0); Mean Corpuscular Volume 85.4 fL (81-99); Mean Platelet Vol. 10.4 fl (6.2-12.0); Platelet Count 300 K/mm3 (150-450); RBC Distribution Width CV 15.3 % (11.6-14.6); RBC Distribution Width SD 47.9 fl (35.1-43.9); Red Blood Count 4.58 M/mm3 (4.2-5.4); White Blood Count 7.4 K/mm3 (4.4-11.0)
[2023-05-06 18:43] LABS: AST(SGOT) 11 U/L (15-37); Alanine Aminotransfer ALT/SGPT 16 U/L (13-56); Albumin, Serum 4.2 g/dL (3.2-5.0); Alkaline Phosphatase 67 U/L (45-117); Anion Gap 7 (5-15); BUN 9 mg/dL (7-18); BUN/Creat Ratio 8.4 RATIO (10-20); Calcium,Total 9.2 mg/dL (8.5-10.1); Chloride 106 mmol/L (98-107); Creatinine, Serum 1.07 mg/dL (0.55-1.02); EST Glomerular Filtration Rate 67 mL/min (>60); Est Glom Filt Rate - Afr Amer 81 mL/min (>60); Estradiol 27.7 pg/mL; Globulin 4.4 g/dL (2.2-4.2); Glucose 78 mg/dL (74-106); Potassium 3.6 mmol/L (3.5-5.1); Protein, Total 8.6 g/dL (6.4-8.2); Sodium Level 136 mmol/L (136-145)
== END | disposition home or self-care (01) ==
DX: F64.0 Transsexualism (principal); Z79.890 Hormone replacement therapy
CPT/HCPCS: 36415; 80053; 82670; 84403; 85027